=== PATIENT | male | born 2000 | race African-American/Black ===

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

== ENCOUNTER 2020-07-08 09:07 | Emergency (ER) | payer OTHER ==
[~2020-07-08] VITALS: Ht 188 cm; Wt 129.5 kg
[2020-07-08 09:16] VITALS: BP 134/83; TEMP 96.9
[2020-07-08 10:30] LABS: STREP SCREEN NEGATIVE
[2020-07-08] MEDS ORDERED: MOTRIN 400400 MG/TAB PO (10:55)
[2020-07-08 11:11] VITALS: PULSE 87
== END 2020-07-08 11:11 | disposition home or self-care (01) ==
LOC: COL.ER 09:07
PROVIDERS: Emergency Medicine
DX: J02.9 Acute pharyngitis, unspecified (principal); R05 Cough; R11.2 Nausea with vomiting, unspecified; Z20.822 Contact with and (suspected) exposure to COVID-19
CPT/HCPCS: J1885; J8540

== ENCOUNTER → 2020-07-16 | Outpatient (CLI) | payer SELFPAY ==
[~2020-07-16] MED LIST changes: +MOTRIN 400400 MG/TAB PO; +OMNICEF 300MG300 MG PO
== END ==
LOC: COL.RAD 11:46
DX: M25.852 Other specified joint disorders, left hip (principal)

== ENCOUNTER 2020-08-02 12:44 | Emergency (ER) | payer SELFPAY ==
[~2020-08-02] VITALS: Ht 188 cm; Wt 120.5 kg
[~2020-08-02 12:44] MED LIST changes: -OMNICEF 300MG300 MG PO
[2020-08-02 12:51] VITALS: BP 127/75; PULSE 98; TEMP 98.9
== END 2020-08-02 13:31 | disposition home or self-care (01) ==
LOC: COL.ER 12:44
DX: N50.819 Testicular pain, unspecified (principal)
CPT/HCPCS: J0696

== ENCOUNTER 2021-01-03 10:08 | Emergency (ER) | payer SELFPAY ==
[~2021-01-03] VITALS: Ht 185.4 cm; Wt 113.6 kg
[2021-01-03 10:24] VITALS: BP 135/78; TEMP 97.4
[2021-01-03 11:08] LABS: COLLECTION METHOD CLEAN CATCH
[2021-01-03 11:25] LABS: MUCOUS Present /lpf; PH 6 (5-8); SQUAMOUS EPITHELIAL 0-2 /hpf; URINE APPEARANCE Cloudy; URINE BACTERIA Rare /hpf; URINE BILIRUBIN Negative (NEGATIVE); URINE BLOOD 3+ (NEGATIVE); URINE COLOR Yellow; URINE GLUCOSE Negative (NEGATIVE); URINE KETONE Negative (NEGATIVE); URINE LEUKOCYTE ESTERASE 2+ (NEGATIVE); URINE NITRATE Negative (NEGATIVE); URINE PROTEIN(semi-quant) 2+ (NEGATIVE); URINE RBC >50 /hpf; URINE UROBILINOGEN Negative (NEGATIVE)
[2021-01-03] MEDS ORDERED: OMNICEF 300MG300 MG PO (12:55)
[2021-01-03 13:21] VITALS: PULSE 81
== END 2021-01-03 13:21 | disposition home or self-care (01) ==
LOC: COL.ER 10:08
PROVIDERS: Family Medicine
DX: N39.0 Urinary tract infection, site not specified (principal)